=== PATIENT | female | born 1985 | race Caucasian/White ===

== ENCOUNTER 2016-08-09 13:43 | Emergency (ER) | payer OTHER ==
[~2016-08-09] VITALS: Ht 160 cm; Wt 63.4 kg
[2016-08-09 13:53] VITALS: BP 116/73; PULSE 59; RESP 15; TEMP 97.7; O2SAT 100
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
[2016-08-09 15:05] VITALS: BP 108/70; PULSE 68; RESP 18; O2SAT 99
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
== END 2016-08-09 15:59 | disposition home or self-care (01) ==
LOC: PHED 13:43
DX: S06.0X9A Concussion with loss of consciousness of unspecified duration, initial encounter (principal); V86.69XA Passenger of other special all-terrain or other off-road motor vehicle injured in nontraffic accident, initial encounter; Y93.I9 Activity, other involving external motion; Y92.410 Unspecified street and highway as the place of occurrence of the external cause; Y99.8 Other external cause status
CPT/HCPCS: 70450

== ENCOUNTER 2016-11-08 15:03 | Emergency (ER) | payer OTHER ==
[~2016-11-08] VITALS: Ht 160 cm; Wt 63.2 kg
[2016-11-08 15:06] VITALS: BP 111/55; PULSE 51; RESP 14; TEMP 98.1; O2SAT 99
--- NOTE | 2016-11-08 15:23 | PD ---
HPI Chief Complaint: Laceration/Skin Injury Time Seen by Provider: 15:10 Travel History International Travel<30 days: Yes Contact w/Intl Traveler<30days: Yes Name of Country Traveled to[place] Traveled to known affect area: No History of Present Illness HPI 30-year-old female presents to the emergency room for evaluation of laceration to her left third finger that occurred just prior to arrival. Patient was cutting an avocado when the knife slipped and she stabbed her finger. She applied a paper towel to control bleeding and came straight to the emergency room. Denies significant pain or loss of range of motion.. Unknown last tetanus. PFSH Past Medical History Medical History: Denies Significant Hx Diminished Hearing: No Tetanus Vaccination: Unknown ?: Not Past Surgical History Surgical History: No Previous Surgery Social History Alcohol Use: Yes (SOC) Tobacco Use: No Substance Use: No Allergies-Medications (Allergen,Severity, Reaction): Coded Allergies: No Known Allergies (Unverified , 11/08/16) Reported Meds & Prescriptions Reported Meds & Active Scripts Active No Active Prescriptions or Reported Medications Review of Systems Except as stated in HPI: all other systems reviewed are Neg Physical Exam Narrative GENERAL: Well-nourished, well-developed female in no acute distress. Afebrile. Ambulatory. SKIN: Focused skin assessment warm/dry. There is a 1.5 cm superficial, nonbleeding laceration to the left third finger on the ulnar side. HEAD: Normocephalic. EYES: No scleral icterus. No injection or drainage. NECK: Supple, trachea midline. No JVD or lymphadenopathy. CARDIOVASCULAR: Regular rate and rhythm without murmurs, gallops, or rubs. RESPIRATORY: Breath sounds equal bilaterally. No accessory muscle use. MUSCULOSKELETAL: No cyanosis, or edema. Full range of motion of the left hand. Less than 2 second capillary refill distally. Data Data Last Documented VS Vital Signs Date Time Temp Pulse Resp B/P Pulse Ox O2 Delivery O2 Flow Rate FiO2 11/08/16 15:06 98.1 51 14 111/55 99 Orders Tetanus/Diphtheria Tox Adult (Tetanus/Di (11/08/16 15:30) MDM Medical Decision Making Medical Screen Exam Complete: Yes Emergency Medical Condition: Yes Medical Record Reviewed: Yes Differential Diagnosis Laceration, abrasion, skin tear Narrative Course 30-year-old female presents to the emergency room for evaluation of a laceration to the left third finger that occurred just prior to arrival when patient cut herself with a knife. Tetanus was updated. There is a 1.5 cm superficial laceration to the left third finger on the ulnar side of the proximal phalanx. Wound was thoroughly cleansed and repaired with glue and Steri-Strips. Patient discharged with wound care instructions and told to follow-up with a primary care physician or return for worsening symptoms. She understands and agrees to plan. Diagnosis Primary Impression: Laceration of left middle finger Qualified Code: S61.213A - Laceration of left middle finger without foreign body without damage to nail, initial encounter Referrals: Primary Care Physician Patient Instructions: Finger Laceration (ED), General Instructions, Skin Adhesive Care (ED) Additional Instructions: Keep wound clean and dry. Follow-up with PCP as needed. Return for worsening symptoms. Scripts No Active Prescriptions or Reported Meds Disposition: 01 DISCHARGE HOME Condition: Stable Brandie Hong Nov 08, 2016 15:23
[2016-11-08] MEDS ORDERED: TETANUS/DIPHTHERIA TOXOID ADULT 0.5 ML VIAL IM ONE (15:30)
== END 2016-11-08 15:56 | disposition home or self-care (01) ==
LOC: PHEFT 15:03
DX: S61.213A Laceration without foreign body of left middle finger without damage to nail, initial encounter (principal); W26.0XXA Contact with knife, initial encounter; Y93.G1 Activity, food preparation and clean up; Y92.9 Unspecified place or not applicable
CPT/HCPCS: 12001; 90471; 90714